=== PATIENT | female | born 1955 | race Hispanic/Latino ===

== ENCOUNTER → 2017-04-24 | Outpatient (CLI) | payer MEDICAID | LOC: BICMAMMO 12:18 → EDSTATUS 12:30 → BICMAMMO 14:57 | PROVIDERS: ATTEND Nurse Practitioner Family | DX: Z12.31 Encounter for screening mammogram for malignant neoplasm of breast (principal) | CPT/HCPCS: 77067 ==

== ENCOUNTER 2018-04-29 08:59 | Outpatient (CLI) | payer OTHER ==
--- NOTE | 2018-05-06 13:20 | MMO ---
Bilateral MAMMO Bilat Screen [facility]. CLINICAL HISTORY: Patient is 62 years old and is seen for screening. The patient has no family history of breast cancer. The patient has no personal history of cancer. VIEWS: The views performed were: bilateral craniocaudal; bilateral mediolateral oblique; and cleavage view. FILMS COMPARED: The present examination has been compared to prior imaging studies performed at [facility] on 05/12/2011, 05/28/2012, 06/11/2013 and 04/24/2017. This study has been interpreted with the assistance of computer-aided detection. MAMMOGRAM FINDINGS: The breasts are almost entirely fat. There are no suspicious masses, calcifications or areas of architectural distortion. IMPRESSION: THERE IS NO MAMMOGRAPHIC EVIDENCE OF MALIGNANCY. A ROUTINE FOLLOW-UP MAMMOGRAM IN 1 YEAR IS RECOMMENDED. ACR BI-RADS Category 1 - Negative MAMMOGRAPHY NOTE: 1. A negative mammogram report should not delay a biopsy if a dominant of clinically suspicious mass is present. 2. Approximately 10% to 15% of breast cancers are not detected by mammography. 3. Adenosis and dense breasts may obscure an underlying neoplasm.
== END 2018-04-29 09:00 | disposition home or self-care (01) ==
LOC: SCSMAMMO 08:59
PROVIDERS: ATTEND Nurse Practitioner Family
DX: Z12.31 Encounter for screening mammogram for malignant neoplasm of breast (principal)
CPT/HCPCS: 77067

== ENCOUNTER 2018-11-20 14:39 | Outpatient (CLI) | payer OTHER ==
--- NOTE | 2018-11-20 15:34 | RAD ---
PA AND LATERAL CHEST: 11/20/18 HISTORY: Dyspnea. COMPARISON: None. Heart size and mediastinum are within normal limits. There is some atherosclerotic change seen. Lungs are clear of infiltrates. Mild arthritic changes of the spine. IMPRESSION: No active intrathoracic disease. POS: [facility]
== END 2018-11-20 14:40 | disposition home or self-care (01) ==
LOC: RAD 14:39
PROVIDERS: ATTEND Internal Medicine Critical Care Medicine
DX: R06.00 Dyspnea, unspecified (principal)
CPT/HCPCS: 71046